=== PATIENT | male | born 1960 | race Caucasian/White ===

== ENCOUNTER → 2023-09-17 | Outpatient (CLI) | payer BC ==
[~2023-09-17] MED LIST: ASPIRIN 81M81 MG/TA2 PO; LIPITOR20 MG PO; RT SPIRIVA18 MCG IH; SUPER EPA 2002000 MG PO; TENORMIN 2525 MG/TAB PO
== END ==
LOC: COL.RAD 08:57
DX: I77.810 Thoracic aortic ectasia (principal); Q61.3 Polycystic kidney, unspecified; Z87.891 Personal history of nicotine dependence